=== PATIENT | female | born 1985 | race Caucasian/White ===

== ENCOUNTER 2017-03-27 08:13 | Emergency (ER) ==
[2017-03-27 08:19] VITALS: BP 109/72; TEMP 97; BMI 17.8
--- NOTE | 2017-03-27 08:38 | ED.PDOC ---
General ED Provider: Dr. KATHY CLARK Chief Complaint: Rash Stated Complaint: rash right buttocks Time Seen by Physician: 08:35 (linda present at all times ) Mode of Arrival: Walk-In Information Source: Patient Exam Limitations: No limitations Nursing and Triage Documentation Reviewed and Agree: Yes (photos submitted ) Skin Complaint Exam - Skin Rash/Itching Complaint/Exam Onset/Duration: rash right buttocks at on a bunch of leafs a week ago rash x 7days Symptoms Are: Still present Initial Severity: Mild Current Severity: Mild Location: buttocks right st with shorts on Potential Exposures: Reports: Plants Prior Treatment: none Aggravating: Reports: None Associated Signs and Symptoms: Denies: Difficulty breathing, Fever, Chills Related History: Similar episode Skin Findings: Present: Papules, Vesicles Differential Diagnoses: Allergic Reaction, Contact Dermatitis, Poison Cheryle/Thaxton Review of Systems - Review Of Systems Constitutional: Reports: No symptoms Eyes: Reports: No symptoms Ears, Nose, Mouth, Throat: Reports: No symptoms Respiratory: Reports: No symptoms Cardiac: Reports: No symptoms GI: Reports: No symptoms : Reports: No symptoms Musculoskeletal: Reports: No symptoms Skin: Reports: Rash (see photos) Neurological: Reports: No symptoms Endocrine: Reports: No symptoms Hematologic/Lymphatic: Reports: No symptoms All Other Systems: Reviewed and Negative Past Medical History - Past Medical History Previously Healthy: Yes Endocrine: Reports: None Cardiovascular: Reports: None Respiratory: Reports: None Hematological: Reports: None Gastrointestinal: Reports: None Genitourinary: Reports: Kidney stones Neuro/Psych: Reports: Migraine Musculoskeletal: Reports: None Cancer: Reports: Other (thyroid) Last Menstrual Period: n/a Other Pertinent Past Medical History: AV malformations - Surgical History General Surgical History: Reports: Hysterectomy - Family History Family History: Reports: None - Social History Smoking Status: Current every day smoker, Light tobacco smoker Hx Substance Use: No Alcohol Screening: None Physical Exam - Physical Exam Appearance: Well-appearing, No pain distress, Well-nourished Eyes: NOHEMY, EOMI, Conjunctiva clear ENT: Ears normal, Nose normal, Oropharynx normal Respiratory: Airway patent, Breath sounds clear, Breath sounds equal, Respirations nonlabored Cardiovascular: RRR, Pulses normal, No rub, No murmur GI/: Soft, Nontender, No masses, Bowel sounds normal, No Organomegaly Musculoskeletal: Normal strength, ROM intact, No edema, No calf tenderness Skin: Warm, Dry (patchy rash right buttocks vesicular , papular) Neurological: Sensation intact, Motor intact, Reflexes intact, Cranial nerves intact, Alert, Oriented Psychiatric: Affect appropriate, Mood appropriate Critical Care Note - Critical Care Note Total Time (mins): 0 Course - Course Vital Signs: Temp Pulse Resp BP Pulse Ox 03/27/17 08:14 97.0 F L 55 L 16 109/72 97 Departure - Departure Time of Disposition: 08:50 (sitting on these leafs per report at this time is the most probable cause urged pt to follow up JED AND PHOTOS SUBMITTED AGAIN RN PRESENT DURING EXAM AT ALL TIMES ) Disposition: HOME SELF-CARE Discharge Problem: Pruritic rash Contact dermatitis Qualifiers: Contact dermatitis type: allergic Instructions: Contact Dermatitis (ED), Poison Cheryle (ED) Condition: Good Pt referred to PMD for follow-up: Yes Additional Instructions: Please call your Family Physician as soon as possible to schedule a follow-up appointment. Allergies/Adverse Reactions: Allergies bupropion HCl [From Wellbutrin] Adverse Reaction (Verified 03/27/17 08:20) Severe depression diphenhydramine HCl [From Benadryl] Adverse Reaction (Verified 03/27/17 08:20) Anaphylaxis latex Adverse Reaction (Verified 03/27/17 08:20) Latex, Natural Rubber Adverse Reaction (Verified 03/27/17 08:20) levofloxacin [From Levaquin] Adverse Reaction (Verified 03/27/17 08:20) Itching IV Levaquin caused itching above IV site. medroxyprogesterone acetate [From Depo-Provera] Adverse Reaction (Verified 03/27 08:20) Bleeding Penicillins Adverse Reaction (Verified 03/27/17 08:20) Muscle spasm risperidone [From Risperdal] Adverse Reaction (Verified 03/27/17 08:20) Worsened seizures Sulfa (Sulfonamide Antibiotics) Adverse Reaction (Verified 03/27/17 08:20) Anaphylaxis sulfamethoxazole [From Bactrim] Adverse Reaction (Verified 03/27/17 08:20) Swelling trimethoprim [From Bactrim] Adverse Reaction (Verified 03/27/17 08:20) Swelling all cillins Adverse Reaction (Uncoded 03/27/17 08:20) Home Medications: Ambulatory Orders Diazepam [Valium] 10 mg PO QID PRN 02/23/14
[2017-03-27] MEDS ORDERED: DECADRON 4 MG/ML SDV IM STA (08:41)
== END 2017-03-27 09:07 | disposition home or self-care (01) ==
LOC: ED 08:13
DX: L23.7 Allergic contact dermatitis due to plants, except food (principal)
CPT/HCPCS: 96372; 99282

== ENCOUNTER 2017-03-27 20:06 | Emergency (ER) ==
[2017-03-27 20:06] VITALS: BMI 17.8
[2017-03-27 20:14] VITALS: BP 111/87; TEMP 94.6
[2017-03-27] MEDS ORDERED: ZOFRAN 4 MG/2 ML IVP STA (20:21)
[2017-03-27] MEDS ORDERED: DEMEROL 25 MG/ML SYRINGE IVP STA (20:21)
[2017-03-27] MEDS ORDERED: SODIUM CHLORIDE 500 ML IV STA (20:26)
--- NOTE | 2017-03-27 20:30 | ED.PDOC ---
General ED Provider: Dr. MIRANDA LEOS Chief Complaint: Abdominal Pain Stated Complaint: Abdominal pain started suddenly, upper belly, 10/10 does not radiate. patient had steroids in the morning for the rash. Time Seen by Physician: 20:27 Mode of Arrival: Wheelchair Information Source: Patient, Family Nursing and Triage Documentation Reviewed and Agree: Yes GI Complaint Exam - Abdominal Pain Complaint/Exam Onset: Sudden Symptoms Are: Still present Timing: Constant Initial Severity: Severe Current Severity: Severe Location of Pain: Epigastric Radiates To: Reports: Back Character: Reports: Aching, Throbbing, Burning Aggravating: Reports: Movement, Deep breaths Alleviating: Reports: None Associated Signs and Symptoms: Reports: Diaphoresis, Nausea. Denies: Fever, Cough, Chest pain, Dizziness, Back pain, Constipation, Blood in stool, Dysuria, Urinary frequency, Decreased urine output, Decreased appetite, Vaginal bleeding , Vaginal discharge, Vomiting, Diarrhea, Sore throat, Decreased activity AAA Risk Factors: Reports: None Cardiac Risk Factors: Reports: None Ectopic Risk Factors: Reports: None Ovarian Torsion Risk Factors: Reports: None Abdominal Findings: Absent: Pulsatile mass, Abdominal distention, Unequal femoral pulses, Rebound tenderness Differential Diagnoses: Gastroenteritis, GB, PUD Review of Systems - Review Of Systems Constitutional: Reports: Malaise, Weakness Eyes: Reports: No symptoms Ears, Nose, Mouth, Throat: Reports: No symptoms Respiratory: Reports: No symptoms Cardiac: Reports: No symptoms GI: Reports: Abdominal pain : Reports: No symptoms Musculoskeletal: Reports: No symptoms Skin: Reports: No symptoms Neurological: Reports: No symptoms Endocrine: Reports: No symptoms Hematologic/Lymphatic: Reports: No symptoms All Other Systems: Reviewed and Negative Past Medical History - Past Medical History Previously Healthy: Yes Endocrine: Reports: None Cardiovascular: Reports: None Respiratory: Reports: None Hematological: Reports: None Gastrointestinal: Reports: None Genitourinary: Reports: Kidney stones Neuro/Psych: Reports: Migraine Musculoskeletal: Reports: None Cancer: Reports: Other (thyroid) Last Menstrual Period: na Other Pertinent Past Medical History: AV malformations - Surgical History General Surgical History: Reports: Hysterectomy - Family History Family History: Reports: None - Social History Smoking Status: Current some day smoker Smoking Cessation Counseling Time: > 3 min - 10 min Hx Substance Use: No Alcohol Screening: None - Immunizations Tetanus Shot up to Date: Yes Physical Exam - Physical Exam Appearance: Ill-appearing, Thin Eyes: NOHEMY, EOMI, Conjunctiva clear ENT: Ears normal, Nose normal, Oropharynx normal Respiratory: Airway patent, Breath sounds clear, Breath sounds equal, Respirations nonlabored Cardiovascular: RRR, Pulses normal, No rub, No murmur GI/: Soft, Tender, Bowel sounds hyperactive Musculoskeletal: Normal strength, ROM intact, No edema, No calf tenderness Skin: Warm, Dry, Normal color Neurological: Sensation intact, Motor intact, Reflexes intact, Cranial nerves intact, Alert, Oriented Psychiatric: Affect appropriate, Mood appropriate Interpretation - Radiology Interpretation Radiology Interpretation By: Radiologist Radiology Results: Negative Exam Interpreted: CT Scan Critical Care Note - Critical Care Note Total Time (mins): 0 Course - Course Hematology/Chemistry: 03/27/17 20:30 03/27/17 20:30 Orders, Labs, Meds: Lab Review 03/27/17 20:30 WBC 5.73 RBC 4.72 Hgb 13.8 Hct 39.6 MCV 83.9 MCH 29.2 MCHC 34.8 RDW Coeff of Nitish 12.4 Plt Count 198 Immature Gran % (Auto) 0.2 Neut % (Auto) 77.6 Lymph % (Auto) 16.8 Braxton % (Auto) 5.1 Eos % (Auto) 0.0 Baso % (Auto) 0.3 Immature Gran # (Auto) 0.0 Neut # 4.5 Lymph # 1.0 Braxton # 0.3 L Eos # 0.0 Baso # 0.0 Sodium 140 Potassium 3.8 Chloride 103 Carbon Dioxide 23 Anion Gap 17.8 BUN 14 Creatinine 0.86 Estimated GFR (MDRD) 76.00 BUN/Creatinine Ratio 16.27 Glucose 109 Calcium 9.4 Total Bilirubin 0.46 AST 20 ALT 15 Alkaline Phosphatase 66 Total Protein 7.5 Albumin 4.2 Globulin 3.3 Albumin/Globulin Ratio 1.27 Amylase 49 Lipase 28 Orders Category Date Time Status ED IV/MEDIPORT/POWERPORT .ONCE EMERGENCY 03/27/17 20:21 Active AMYLASE Stat LAB 03/27/17 20:30 Completed BLOOD CULTURE Stat LAB 03/27/17 20:40 Received CBC W/ AUTO DIFF Stat LAB 03/27/17 20:30 Completed COMPREHENSIVE METABOLIC PANEL Stat LAB 03/27/17 20:30 Completed LIPASE Stat LAB 03/27/17 20:30 Completed 0.9 % Sodium Chloride [Saline Flush] MEDS 07/18/17 20:21 Ordered 1 syr IVF PRN PRN Meperidine HCl/Pf [Demerol 25 mg/ml Syringe] MEDS 03/27/17 20:21 Discontinued 25 mg IVP ONCE STA Ondansetron HCl/Pf [Zofran 4 mg/2 ml] MEDS 03/27/17 20:21 Discontinued 4 mg IVP ONCE STA Sodium Chloride 0.9% [Sodium Chloride] 500 ml MEDS 03/27/17 20:[address] ABDOMEN/PELVIS WO CONTRAST Stat RADS 03/27/17 20:21 Completed Medications Generic Name Dose Route Start Last Admin Trade Name Freq PRN Reason Stop Dose Admin Sodium Chloride 1 syr 03/27/17 20:21 03/27/17 20:43 Saline Flush IVF 1 syr PRN PRN Administration To flush IV Discontinued Medications Generic Name Dose Route Start Last Admin Trade Name Freq PRN Reason Stop Dose Admin Sodium Chloride 500 mls @ 500 mls/hr 03/27/17 20:26 03/27/17 20:39 Sodium Chloride IV 03/27/17 21:25 500 mls/hr BOLUS STA Administration Meperidine HCl 25 mg 03/27/17 20:21 03/27/17 20:38 Demerol 25 Mg/Ml Syringe IVP 03/27/17 20:22 25 mg ONCE STA Administration Ondansetron HCl 4 mg 03/27/17 20:21 03/27/17 20:39 Zofran 4 Mg/2 Ml IVP 03/27/17 20:22 4 mg ONCE STA Administration Vital Signs: Temp Pulse Resp BP Pulse Ox 03/27/17 20:09 94.6 F L 79 20 111/87 97 Departure - Departure Time of Disposition: 21:57 Disposition: HOME SELF-CARE Discharge Problem: Abdominal pain Instructions: Peptic Ulcer (ED) Condition: Stable Pt referred to PMD for follow-up: Yes Additional Instructions: SOFT DIET nO SPICY FOOD. NO FRIED FOOD Prescriptions: Ranitidine HCl [Zantac] 150 mg PO BIDAC #20 tablet Sucralfate Susp [Carafate] 1 gm PO ACHS #1 bottle Allergies/Adverse Reactions: Allergies bupropion HCl [From Wellbutrin] Adverse Reaction (Verified 03/27/17 20:18) Severe depression diphenhydramine HCl [From Benadryl] Adverse Reaction (Verified 03/27/17 20:18) Anaphylaxis latex Adverse Reaction (Verified 03/27/17 20:18) Latex, Natural Rubber Adverse Reaction (Verified 03/27/17 20:18) levofloxacin [From Levaquin] Adverse Reaction (Verified 03/27/17 20:18) Itching IV Levaquin caused itching above IV site. medroxyprogesterone acetate [From Depo-Provera] Adverse Reaction (Verified 03/27 20:18) Bleeding Penicillins Adverse Reaction (Verified 03/27/17 20:18) Muscle spasm risperidone [From Risperdal] Adverse Reaction (Verified 03/27/17 20:18) Worsened seizures Sulfa (Sulfonamide Antibiotics) Adverse Reaction (Verified 03/27/17 20:18) Anaphylaxis sulfamethoxazole [From Bactrim] Adverse Reaction (Verified 03/27/17 20:18) Swelling trimethoprim [From Bactrim] Adverse Reaction (Verified 03/27/17 20:18) Swelling all cillins Adverse Reaction (Uncoded 03/27/17 20:18) Home Medications: Ambulatory Orders Diazepam [Valium] 10 mg PO QID PRN 02/23/14 Ranitidine HCl [Zantac] 150 mg PO BIDAC #20 tablet 03/27/17 Sucralfate Susp [Carafate] 1 gm PO ACHS #1 bottle 03/27/17
[2017-03-27 20:38] LABS: BASOPHILS % (AUTO) 0.3 % (0.0-3.0); HEMATOCRIT 39.6 % (37.0-47.0); HEMOGLOBIN 13.8 g/dl (12.0-16.0); IMMATURE GRANULOCYTE % (AUTO) 0.2 % (0.0-5.0); LYMPHOCYTES % (AUTO) 16.8 (10.0-50.0); MEAN CORPUSCULAR HEMOGLOBIN 29.2 pg (27.0-31.0); MEAN CORPUSCULAR HGB CONC 34.8 (31.8-35.4); MEAN CORPUSCULAR VOLUME 83.9 fl (81.0-99.0); MONOCYTES # (AUTO) 0.3 K/uL (0.4-2.0); MONOCYTES % (AUTO) 5.1 (0-10); NEUTROPHILS # (AUTO) 4.5 K/ul (2.0-6.9); NEUTROPHILS % (AUTO) 77.6; PLATELET COUNT 198 10^3/uL (140-440); RED BLOOD COUNT 4.72 10^6/ul (4.20-5.40); WHITE BLOOD COUNT 5.73 K/ul (4.6-10.2)
[2017-03-27 21:02] LABS: ALBUMIN 4.2 g/dL (3.4-5.0); ALBUMIN/GLOBULIN RATIO 1.27; ANION GAP 17.8; BILIRUBIN,TOTAL 0.46 mg/dL (0.00-1.20); BUN/CREATININE RATIO 16.27; CALCIUM 9.4 mg/dL (8.2-10.2); CREATININE 0.86 mg/dL (0.60-1.30); POTASSIUM 3.8 mmol/L (3.5-5.10); TOTAL PROTEIN 7.5 g/dL (6.4-8.2)
--- NOTE | 2017-03-27 21:34 | CT ---
EXAM: CT abdomen pelvis without intravenous contrast 03/27/2017. Sagittal and coronal reformatted images obtained HISTORY: Abdominal pain COMPARISON: 06/04/2016 FINDINGS: The liver and gallbladder show no acute process. The adrenal glands and kidneys show no acute abnormality. Bilateral nonobstructive nephrolithiasis measures up to 4 mm diameter. The sple en and pancreas show no acute process. There is no bowel obstruction. Unremarkable urinary bladder. There is no free air or free fluid. Appendix is not identified. No specific secondary signs of appendicitis. IMPRESSION: 1. Bilateral nonobstructive nephrolithiasis. 2. No urinary or bowel obstruction. 3. Technically limited examination due to the lack of intravenous contrast.
[2017-03-27] MEDS ORDERED: CARAFATE PO STA (22:07)
== END 2017-03-27 22:15 | disposition home or self-care (01) ==
LOC: ED 20:06
DX: R10.13 Epigastric pain (principal); F17.210 Nicotine dependence, cigarettes, uncomplicated; L23.7 Allergic contact dermatitis due to plants, except food
CPT/HCPCS: 36415; 80053; 82150; 83690; 85025; 87040; 96360; 96372; 96375; 99282; 99283

== ENCOUNTER 2017-10-07 15:00 | Emergency (ER) ==
[2017-10-07 15:12] VITALS: BP 119/86; TEMP 98.8; BMI 17.1
[2017-10-07] MEDS ORDERED: NORCO 10-325 PO STA (15:19)
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
== END 2017-10-07 16:32 | disposition home or self-care (01) ==
LOC: ED 15:00
DX: S49.92XA Unspecified injury of left shoulder and upper arm, initial encounter (principal); S29.9XXA Unspecified injury of thorax, initial encounter; Y09 Assault by unspecified means; F17.210 Nicotine dependence, cigarettes, uncomplicated
CPT/HCPCS: 99283

== ENCOUNTER 2017-12-13 11:50 | Outpatient (CLI) ==
--- NOTE | 2017-12-13 12:15 | DI ---
EXAM: Pelvis one-view HISTORY: Pelvic and perineal pain COMPARISON: None FINDINGS: Sacroiliac joints intact. Sacral arcuate intact. Bones are normal. Hip joints are felix l. Leftward curvature lower lumbar spine with associated rotation. No focal soft tissue abnormality. Surgical clips in the right pelvis. IMPERSSION: No fracture or dislocation.
--- NOTE | 2017-12-13 12:17 | DI ---
EXAM: LEFT KNEE. HISTORY: Left knee pain FINDINGS: Left knee four view. Articular cartilage width is normal. There is no fracture or joint effusion. Bone density and soft tissues are within normal limits. IMPRESSION: Within normal limits.
--- NOTE | 2017-12-13 12:20 | DI ---
EXAM: Left hip two views HISTORY: Pain COMPARISON: None. FINDINGS: The left hip joint and SI joint are intact. There is no acute fracture , dislocation or s oft tissue abnormality. IMPRESSION: No acute findings.
== END 2017-12-13 11:51 | disposition home or self-care (01) ==
LOC: LAB 11:50
PROVIDERS: ATTEND Emergency Medicine
DX: R10.2 Pelvic and perineal pain (principal); M25.552 Pain in left hip; M25.562 Pain in left knee; G89.29 Other chronic pain; M79.7 Fibromyalgia; R35.0 Frequency of micturition; R53.83 Other fatigue
CPT/HCPCS: 36415; 80053; 81001; 82542; 85025; 87086